=== PATIENT | male | born 1990 | race Caucasian/White ===

== ENCOUNTER → 2022-08-17 | Emergency (ER) | payer OTHER ==
[~2022-08-17] MED LIST: ALBU18
== END | disposition left against medical advice (07) ==
LOC: ER 21:29
DX: T63.441A Toxic effect of venom of bees, accidental (unintentional), initial encounter (principal); Z53.21 Procedure and treatment not carried out due to patient leaving prior to being seen by health care provider; Y92.89 Other specified places as the place of occurrence of the external cause